=== PATIENT | male | born 2000 | race Caucasian/White ===

== ENCOUNTER 2023-08-25 05:30 | Emergency (ER) | payer OTHER ==
[~2023-08-25] VITALS: Ht 165.1 cm; Wt 59.1 kg
[2023-08-25 06:30] VITALS: BP 129/68; PULSE 79; RESP 18; TEMP 97.3
[2023-08-25] MEDS: AZITHROMYCIN 500 MG TABLET PO ONE (06:39)
[2023-08-25] MEDS: LIDOCAINE/PF 1% 2 ML VIAL IM ONE (06:39)
[2023-08-25] MEDS: CefTRIAXone SODIUM 1 GM/VIAL IM ONE (06:39)
== END 2023-08-25 07:10 | disposition home or self-care (01) ==
LOC: EMS 05:33
DX: N34.2 Other urethritis (principal); F17.210 Nicotine dependence, cigarettes, uncomplicated; F12.90 Cannabis use, unspecified, uncomplicated
CPT/HCPCS: 99283; J0696; J3490; Q9967